=== PATIENT | male | born 1955 | race Asian ===

== ENCOUNTER 2020-08-24 13:12 | Outpatient (CLI) | payer OTHER | END 2020-08-24 22:18 | disposition home or self-care (01) | LOC: INF 13:12 | PROVIDERS: ATTEND Internal Medicine | DX: Z23 Encounter for immunization (principal) | CPT/HCPCS: 96372 ==

== ENCOUNTER 2020-09-15 13:07 | Outpatient (CLI) | payer OTHER | END 2020-09-15 22:21 | disposition home or self-care (01) | LOC: INF 13:07 | PROVIDERS: ATTEND Internal Medicine | DX: Z23 Encounter for immunization (principal) | CPT/HCPCS: 96372 ==